=== PATIENT | male | born 1980 | race Hispanic/Latino ===

== ENCOUNTER 2023-05-30 00:23 | Emergency (ER) | payer BC | END 2023-05-30 08:05 | disposition home or self-care (01) | LOC: ERS 00:23 | DX: I82.401 Acute embolism and thrombosis of unspecified deep veins of right lower extremity (principal); E11.9 Type 2 diabetes mellitus without complications; Z87.891 Personal history of nicotine dependence; Z79.01 Long term (current) use of anticoagulants ==

== ENCOUNTER 2023-06-09 04:35 | Emergency (ER) | payer BC ==
[2023-06-09] MEDS ORDERED: Acetaminophen 500 MG TAB ONE (05:05)
[2023-06-09 05:22] LABS: #Basophils 0.1 thou/uL (0.0-0.2); %Basophils 0.3 % (0.0-1.0); %Eosinophils 0.2 % (0.0-10.0); %Lymphocytes 6.8 % (21.0-51.0); %Neutrophils 86.1 % (42.0-75.0); Hematocrit 40.5 % (42.0-52.0); Hemoglobin 14.1 g/dL (14.0-18.0); Mean Corpuscular HGB CONC 34.8 g/dL (32.0-36.0); Mean Corpuscular Hemoglobin 32.6 pg (27.0-31.0); Mean Corpuscular Volume 93.8 fl (78.0-98.0); Mean Platelet Volume 9.9 fL (7.4-10.4); Platelet Count 311 10x3/uL (130-400); RBC Distribution Width 11.7 % (11.5-14.5); Red Blood Cell (RBC) Count 4.32 mill/uL (4.70-6.10); White Blood Cell (WBC) Count 17.5 10x3/uL (4.8-10.8)
[2023-06-09 05:44] LABS: ALT (SGPT) 20 U/L (8-55); AST (SGOT) 18 U/L (5-34); Albumin 4.3 g/dL (3.5-5.0); Alkaline Phosphatase 65 U/L (40-110); Anion Gap 13 mmol/L (10-20); BUN (Urea Nitrogen) 10 mg/dL (8.9-20.6); Bilirubin, Total 0.5 mg/dL (0.2-1.2); CK (CPK) 335 U/L (30-200); Calc. Creatinine Clearance 0 mL/min (70-130); Calcium 8.4 mg/dL (7.8-10.44); Carbon Dioxide 19 mmol/L (22-29); Chloride 104 mmol/L (98-107); Estimated GFR 99; Globulin 2.9 g/dL (2.4-3.5); Glucose 164 mg/dL (70-105); Potassium 3.6 mmol/L (3.5-5.1); Protein, Total 7.2 g/dL (6.0-8.3); Sodium 132 mmol/L (136-145)
[2023-06-09] MEDS ORDERED: Apixaban 5 MG TAB PO SCH (07:15)
== END 2023-06-09 06:43 | disposition home or self-care (01) ==
LOC: EDBD → ERS 04:35
DX: F15.20 Other stimulant dependence, uncomplicated (principal); I26.99 Other pulmonary embolism without acute cor pulmonale; E11.9 Type 2 diabetes mellitus without complications; F17.200 Nicotine dependence, unspecified, uncomplicated; Z79.01 Long term (current) use of anticoagulants
CPT/HCPCS: 36415; 70450; 80053; 82550; 83880; 85025; 85730; 93005; 96360

== ENCOUNTER 2023-06-11 12:39 | Observation (INO) | payer BC ==
[~2023-06-11 12:39] MED LIST: Iopamidol-370 76% 500 ML MDV (1 ML CHARGE) ONE
[2023-06-11] MEDS ORDERED: LORazepam 2 MG/ML SYR.(CARPUJECT) ONE (13:18)
[2023-06-11] MEDS ORDERED: Aspirin 325 MG TAB ONE (13:18)
[2023-06-11 13:26] LABS: #Basophils 0.1 thou/uL (0.0-0.2); #Eosinphils 0.2 thou/uL (0.0-0.7); #Monocytes 0.6 thou/uL (0.11-0.59); #Neutrophils 6.9 thou/uL (1.40-6.50); %Basophils 0.6 % (0.0-1.0); %Eosinophils 1.7 % (0.0-10.0); %Lymphocytes 21.8 % (21.0-51.0); %Monocytes 6.4 % (0.0-10.0); %Neutrophils 68.7 % (42.0-75.0); Hematocrit 44.5 % (42.0-52.0); Hemoglobin 15.5 g/dL (14.0-18.0); Mean Corpuscular HGB CONC 34.8 g/dL (32.0-36.0); Mean Corpuscular Hemoglobin 32.2 pg (27.0-31.0); Mean Corpuscular Volume 92.5 fl (78.0-98.0); Mean Platelet Volume 10.2 fL (7.4-10.4); Platelet Count 376 10x3/uL (130-400); RBC Distribution Width 11.5 % (11.5-14.5); Red Blood Cell (RBC) Count 4.81 mill/uL (4.70-6.10)
[2023-06-11 13:45] LABS: Albumin 4.6 g/dL (3.5-5.0)
[2023-06-11 13:47] LABS: Chloride 106 mmol/L (98-107); Potassium 3.4 mmol/L (3.5-5.1); Sodium 137 mmol/L (136-145)
[2023-06-11 13:48] LABS: ALT (SGPT) 20 U/L (8-55); AST (SGOT) 16 U/L (5-34); Alkaline Phosphatase 61 U/L (40-110); Anion Gap 16 mmol/L (10-20); Bilirubin, Total 0.5 mg/dL (0.2-1.2); Calc. Creatinine Clearance 0 mL/min (70-130); Carbon Dioxide 19 mmol/L (22-29); Estimated GFR 94; Globulin 3.3 g/dL (2.4-3.5); Glucose 125 mg/dL (70-105); Protein, Total 7.8 g/dL (6.0-8.3)
[2023-06-11 13:52] LABS: BUN (Urea Nitrogen) 11 mg/dL (8.9-20.6)
[2023-06-11 13:54] LABS: Troponin I Less than 0.010 ng/mL (< 0.028)
[2023-06-11] MEDS ORDERED: Acetaminophen 325 MG TAB PO PRN (14:40)
[2023-06-11] MEDS ORDERED: HYDROcodone/Acetaminophen 5/325 mg Tablet PO PRN (14:40)
[2023-06-11] MEDS ORDERED: Lorazepam 0.5 MG TAB PO PRN (14:41)
[2023-06-11] MEDS ORDERED: Dextrose 5% in Water 1,000 ML IV PRN (14:44)
[2023-06-11] MEDS ORDERED: Glucagon 1 MG/ML KIT IM PRN (14:44)
[2023-06-11] MEDS ORDERED: Dextrose 50% Abboject 50 ML SYRINGE SLOW IVP PRN (14:44)
[2023-06-11] MEDS ORDERED: HumaLOG 300 UNITS/3 ML VIAL SC PRN (14:44)
[2023-06-11] MEDS ORDERED: Potassium Chloride 20 MEQ TAB PO SCH (14:45)
[2023-06-11] MEDS ORDERED: Apixaban 5 MG TAB PO SCH ×2 (14:45→15:00)
[2023-06-11 15:38] LABS: Troponin I Less than 0.010 ng/mL (< 0.028)
[2023-06-11 17:54] VITALS: BMI 31.2
[2023-06-11 19:13] LABS: Actual Bicarbonate (HCO3v) 24.2 mEq/L (22-28); Calcium, Ionized (venous) 1.09 mmol/L (1.16-1.32); Chloride (VBG) 103 mmol/L (98-106); Hematocrit-VBG 44 % (42.0-52.0); Hemoglobin (Hb) 14.9 g/dL (13.2-17.3); Potassium (VBG) 4.32 mmol/L (3.70-5.30); Sodium 138.2 mmol/L (133-146); pH (venous) 7.421 (7.32-7.43)
[2023-06-11 21:09] LABS: Troponin I Less than 0.010 ng/mL (< 0.028)
[2023-06-12 05:14] LABS: #Basophils 0.1 thou/uL (0.0-0.2); #Eosinphils 0.4 thou/uL (0.0-0.7); #Monocytes 0.7 thou/uL (0.11-0.59); %Basophils 0.5 % (0.0-1.0); %Eosinophils 3.3 % (0.0-10.0); %Monocytes 6.1 % (0.0-10.0); %Neutrophils 61.3 % (42.0-75.0); Hematocrit 42.5 % (42.0-52.0); Hemoglobin 14.1 g/dL (14.0-18.0); Mean Corpuscular HGB CONC 33.2 g/dL (32.0-36.0); Mean Corpuscular Hemoglobin 32.9 pg (27.0-31.0); Mean Platelet Volume 10.1 fL (7.4-10.4); Platelet Count 346 10x3/uL (130-400); RBC Distribution Width 12.1 % (11.5-14.5); Red Blood Cell (RBC) Count 4.28 mill/uL (4.70-6.10); White Blood Cell (WBC) Count 11.4 10x3/uL (4.8-10.8)
[2023-06-12 05:53] LABS: Anion Gap 12 mmol/L (10-20); BUN (Urea Nitrogen) 10 mg/dL (8.9-20.6); Calc. Creatinine Clearance 118 mL/min (70-130); Calcium 8.6 mg/dL (7.8-10.44); Carbon Dioxide 21 mmol/L (22-29); Chloride 109 mmol/L (98-107); Estimated GFR 99; Glucose 109 mg/dL (70-105); Potassium 4.3 mmol/L (3.5-5.1); Sodium 138 mmol/L (136-145)
[2023-06-12 06:08] LABS: Mean Corpuscular Volume 99.3 fl (78.0-98.0)
[2023-06-12] MEDS ORDERED: Apixaban 5 MG TAB PO SCH ×2 (09:00)
[2023-06-12 11:26] VITALS: BP 140/97; TEMP 98.5
[2023-06-18] MEDS ORDERED: Apixaban 5 MG TAB PO SCH (21:00)
== END 2023-06-12 14:23 | disposition home or self-care (01) ==
LOC: ERS 12:39 → EDBD 14:16 → 2NO 14:16
PROVIDERS: ADMIT Family Medicine; ATTEND Hospitalist
DX: I26.99 Other pulmonary embolism without acute cor pulmonale (principal); I82.401 Acute embolism and thrombosis of unspecified deep veins of right lower extremity; J45.909 Unspecified asthma, uncomplicated; E11.9 Type 2 diabetes mellitus without complications; F41.9 Anxiety disorder, unspecified
CPT/HCPCS: 36415; 36416; 71045; 71275; 80048; 80053; 82805; 83036; 84484; 85025; 93005; 96374; G0378; J2060; Q9967